=== PATIENT | female | born 1950 | race Two or more races ===

== ENCOUNTER 2024-01-28 14:31 | Outpatient (CLI) | payer OTHER ==
[2024-01-28 16:00] VITALS: BP 107/71; PULSE 70; RESP 16; TEMP 98.4; O2SAT 98
== END 2024-01-28 19:57 | disposition home or self-care (01) ==
LOC: CSU 14:31 → EDSTATUS 03-18 14:45
PROVIDERS: ATTEND Nurse Practitioner Psychiatric/Mental Health
DX: F32.A Depression, unspecified (principal)
CPT/HCPCS: 90839; 90840